=== PATIENT | male | born 2000 | race Caucasian/White ===

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

== ENCOUNTER 2018-12-04 22:31 | Emergency (ER) | payer OTHER ==
--- NOTE | 2018-12-04 23:00 | ER Document Report ---
ED Medical Screen (RME) - General Chief Complaint: Insect Bite Stated Complaint: POSSIBLE INSECT BITE Time Seen by Provider: 12/04/18 22:50 Notes: Patient is an otherwise healthy 18-year-old male coming in today with chief complaint left thigh redness and swelling[place]. He was given a prescription for doxycycline. He popped the pustule there was at the center of all the redness and now his symptoms are worse. No fevers or shaking chills. He does not have any diabetes or other immune compromising diseases. I have treated and performed a rapid initial assessment of this patient. A comprehensive ED assessment and evaluation of the patient, analysis of test results and completion of medical decision making process will be conducted by additional ED providers. PHYSICAL EXAMINATION: GENERAL: Well-appearing, well-nourished and in no acute distress. A&Ox4. Answers questions appropriately. LUNGS: Breath sounds clear to auscultation bilaterally and equal. No wheezes rales or rhonchi. HEART: Regular rate and rhythm without murmurs, rubs, gallops. Extremities: No cyanosis, clubbing, or edema b/l. There is a large left sided middle thigh cellulitis present with an open pustule in the center no lymphangitis. NEUROLOGICAL: Normal speech, normal gait. PSYCH: Normal mood, normal affect. TRAVEL OUTSIDE OF THE [place] IN LAST 30 DAYS: No - Related Data Allergies/Adverse Reactions: No Known Allergies Allergy (Verified 04/20/17 11:49) Past Medical History Pulmonary Medical History: Reports: Hx Asthma Renal/ Medical History: Denies: Hx Peritoneal Dialysis Physical Exam - Vital signs Vitals: Temp Pulse Resp BP Pulse Ox 98.0 F 89 16 161/66 H 99 12/04/18 22:46 12/04/18 22:46 12/04/18 22:46 12/04/18 22:46 12/04/18 22:46 Course - Vital Signs Vital signs: Temp Pulse Resp BP Pulse Ox 98.0 F 89 16 161/66 H 99 12/04/18 22:46 12/04/18 22:46 12/04/18 22:46 12/04/18 22:46 12/04/18 22:46
[2018-12-04 23:56] LABS: ABSOLUTE EOSINOPHILS # (AUTO) 0.4 10^3/uL (0.0-0.6); ABSOLUTE LYMPHOCYTES (AUTO) 2.2 10^3/uL (0.5-4.7); ABSOLUTE MONOCYTES (AUTO) 0.9 10^3/uL (0.1-1.4); ABSOLUTE NEUT (AUTO) 5.8 10^3/uL (1.7-8.2); BASOPHILS % (AUTO) 0.5 % (0-2); EOSINOPHILS % (AUTO) 4.2 % (0-6); HEMATOCRIT 46.1 % (37.9-51.0); HEMOGLOBIN 15.5 g/dL (13.5-17.0); LYMPHOCYTES % (AUTO) 23.7 % (13-45); MEAN CORPUSCULAR HEMOGLOBIN 26.2 pg (27.0-33.4); MEAN CORPUSCULAR HGB CONC 33.6 g/dL (32.0-36.0); MEAN CORPUSCULAR VOLUME 78 fl (80-97); MONOCYTES % (AUTO) 9.2 % (3-13); PLATELET COUNT 195 10^3/uL (150-450); RED BLOOD COUNT 5.91 10^6/uL (4.35-5.55); RED CELL DISTRIBUTION WIDTH 13.1 % (11.5-14.0); SEGMENTED NEUTROPHILS % (AUTO) 62.4 % (42-78); TOTAL CELLS COUNTED % (AUTO) 100 %; WHITE BLOOD COUNT 9.3 10^3/uL (4.0-10.5)
[2018-12-05 00:08] LABS: ALANINE AMINOTRANSFERASE 28 U/L (21-72); ALBUMIN 4.6 g/dL (3.5-5.0); ALKALINE PHOSPHATASE 56 U/L (38-126); ANION GAP 12 (5-19); ASPARTATE AMINO TRANSFERASE 22 U/L (17-59); BILIRUBIN,DIRECT 0.3 mg/dL (0.0-0.4); BILIRUBIN,TOTAL 0.4 mg/dL (0.2-1.3); BLOOD UREA NITROGEN 18 mg/dL (7-20); CALCIUM 9.8 mg/dL (8.4-10.2); CARBON DIOXIDE 26 mmol/L (22-30); CHLORIDE 103 mmol/L (98-107); GLUCOSE 74 mg/dL (75-110); POTASSIUM 3.8 mmol/L (3.6-5.0); SODIUM 141.2 mmol/L (137-145); TOTAL PROTEIN 7.8 g/dL (6.3-8.2)
--- NOTE | 2018-12-05 01:34 | ER Document Report ---
ED General - General Chief Complaint: Insect Bite Stated Complaint: POSSIBLE INSECT BITE Time Seen by Provider: 12/04/18 22:50 Primary Care Provider: MAICOL MOORE MD [Primary Care Provider] - Follow up in 3-5 days Notes: Patient is a 18-year-old male without chronic medical problems who presents with a rash and an area of induration to his left medial thigh. Patient was seen in the [facility] emergency department 2 days ago, diagnosed with cellulitis and started on doxycycline. He states however that the redness has spread and that he noticed a pustule in the central area of the cellulitis which she did try to d rain on his own at home. However he states that are pushing on the area and drained some pus the area of redness became much greater in size prompting him to come to the emergency department. He notes a burning, throbbing, aching pain to the area that is moderate in nature. Touching the area worsens the pain. Does not believe the antibiotics are helping. Has not noted has been helping. Denies anything similar to this in the past. Denies fever or constitutional symptoms. TRAVEL OUTSIDE OF THE [place] IN LAST 30 DAYS: No - Related Data Allergies/Adverse Reactions: No Known Allergies Allergy (Verified 04/20/17 11:49) Past Medical History - General Information source: Patient - Social History Smoking Status: Never Smoker Frequency of alcohol use: None Drug Abuse: None Lives with: Spouse/Significant other Family History: Reviewed & Not Pertinent Pulmonary Medical History: Reports: Hx Asthma Renal/ Medical History: Denies: Hx Peritoneal Dialysis Review of Systems - Review of Systems Notes: Constitutional: Negative for fever. HENT: Negative for sore throat. Eyes: Negative for visual changes. Cardiovascular: Negative for chest pain. Respiratory: Negative for shortness of breath. Gastrointestinal: Negative for abdominal pain, vomiting or diarrhea. Genitourinary: Negative for dysuria. Musculoskeletal: Negative for back pain. Skin: Positive for rash. Neurological: Negative for headaches, weakness or numbness. 10 point ROS negative except as marked above and in HPI. Physical Exam - Vital signs Vitals: Temp Pulse Resp BP Pulse Ox 98.0 F 89 16 161/66 H 99 12/04/18 22:46 12/04/18 22:46 12/04/18 22:46 12/04/18 22:46 12/04/18 22:46 Interpretation: Hypertensive Notes: PHYSICAL EXAMINATION: GENERAL: Well-appearing, well-nourished and in no acute distress. HEAD: Atraumatic, normocephalic. EYES: sclera anicteric, conjunctiva are normal. ENT: Moist mucous membranes. NECK: Normal range of motion LUNGS: Normal work of breathing HEART: 2+ radial pulses bilaterally EXTREMITIES: no pitting or edema. No cyanosis. NEUROLOGICAL: No focal neurological deficits. Moves all extremities spontaneously and on command. PSYCH: Normal mood, normal affect. SKIN: Warm, Dry, normal turgor, 4 x 5 cm area of erythema on the left medial thigh with a central area of induration that is open and appears to be draining a small amount of purulent material Course - Re-evaluation Re-evalutation: 12/05/18 01:30 Patient presents with a small abscess on the left medial thigh with associated cellulitis. Will start on doxycycline but the abscess was not incised and drained. The patient did drain some purulent material from the area prior to coming to the hospital today but decided to come due to the spreading redness. On exam the patient does still have some induration in the central area of the cellulitis, ultrasound does reveal ongoing fluid collection. The area was incis ed and drained with expression of a small amount of purulent material. Patient is currently on doxycycline which does provide some MRSA coverage but will transition to trimethoprim sulfamethoxazole and cephalexin with discontinuation of doxycycline to provide more adequate coverage of MRSA. Patient is otherwise well in appearance, vitals that is at the limits. No indication for labs or imaging. At this time will discharge with return precautions and follow-up recommendations. Verbal discharge instructions given a the bedside and opportunity for questions given. Medication warnings reviewed. Patient is in agreement with this plan and has verbalized understanding of return precautions and the need for primary care follow-up in the next 24-72 hours. - Vital Signs Vital signs: Temp Pulse Resp BP Pulse Ox 97.3 F 66 14 124/64 98 12/05/18 01:45 12/05/18 01:45 12/05/18 01:45 12/05/18 01:45 12/05/18 01:45 - Laboratory Result Diagrams: 12/04/18 23:35 12/04/18 23:35 Laboratory results interpreted by me: 12/04/18 12/04/18 23:35 23:35 RBC 5.91 H MCV 78 L MCH 26.2 L Glucose 74 L Procedures - Incision and Drainage Left thigh Type: Simple Anesthetic type: 1% Lidocaine Blade size: 11 I&D procedure: Betadine prep applied Incision Method: Incision made by scalpel Amount/type of drainage: 0.5 cc purulent drainage Discharge - Discharge Clinical Impression: Cellulitis of left thigh, Abscess of left thigh Condition: Good Disposition: HOME, SELF-CARE Additional Instructions: You were seen for an abscess that required drainage. Please clean this area with soap and water twice daily and apply a topical antibiotic. Dress the area after each cleaning. Please return if you develop fever, vomiting, the pain at the site worsens, the redness continues to spread, develop a fever greater than 100.4 F, increasing pain to the area, or any other symptoms that are worrisome to you. Stop taking doxycycline. Begin taking trimethoprim sulfamethoxazole and cephalexin. Complete all antibiotics even in the area of rash improves. Prescriptions: Cephalexin Monohydrate [Keflex 500 mg Capsule] 500 mg PO Q6H 7 Days capsule Sulfamethoxazole/Trimethoprim [Bactrim Ds Tablet] 2 tab PO BID #28 tablet Referrals: MAICOL MOORE MD [Primary Care Provider] - Follow up in 3-5 days
[2018-12-05 01:50] VITALS: BP 124/64
== END 2018-12-05 01:50 | disposition home or self-care (01) ==
LOC: ER 22:31
DX: L02.416 Cutaneous abscess of left lower limb (principal); L03.116 Cellulitis of left lower limb; J45.909 Unspecified asthma, uncomplicated
CPT/HCPCS: 99282; 36415; 85025; 80053; 10060; A6266